=== PATIENT | female | born 1995 | race Caucasian/White ===

== ENCOUNTER → 2025-04-08 | Emergency (ER) | payer MEDICAID ==
[~2025-04-08] VITALS: Ht 157.5 cm; Wt 103.5 kg
[~2025-04-08] MED LIST: HYDR-3965 PO; IBUP-1984 PO; LIDO-52 TD; TIZA4TAB11 PO
[2025-04-08 14:28] VITALS: TEMP 97.4
--- NOTE | 2025-04-08 14:40 | Physician Documentation ---
History of Present Illness ~ Chief Complaint: Neck pain Stated Complaint: NECK PAIN Time Seen by MD: 15:57 HPI This is a 29-year-old female who presents with left-sided neck pain radiating into her head and left shoulder. Patient reports subjective fever. No reported trauma. No prior history of the same. No recent travels hospitalizations or known ill contacts. Medication Reconciliation Allergies: Coded Allergies: No Known Allergies (Unverified , 04/08/25) Scheduled Ibuprofen* (Motrin*), 800 MG PO Q8H Lidocaine (Lidoderm), 1 PATCH TD DAILY Tizanidine Hcl (Zanaflex), 1 TAB PO Q8H Review of Systems All Other Systems at this time: Reviewed and Negative ROS As stated above in the HPI, otherwise all systems are reviewed and negative. Physical Exam Vital Signs: RN Vital Signs have been reviewed: Yes, Temperature: 97.4, Heart Rate: 95, Respiratory Rate: 14, BP: 189/112, Pulse Oximetry: 100, Weight: 103.500 Physical Exam VITALS: Reviewed and as above. GENERAL: Alert, nontoxic appearing, no apparent distress. HEENT: RESPIRATORY: No increased work of breathing, no respiratory distress, speaking in full clear sentences CHEST: CV: BACK: GI: MUSCULOSKELETAL: SKIN: NEURO: PSYCH: General Appearance: alert, WD/WN, mild distress Neck: limited range of motion, muscle spasm, painful range of motion, paraspinous muscle tender (Left); No: thyromegaly, spinous processes tender, tenderness, meningeal signs EENT: normal ENT inspection Respiratory: no respiratory distress Chest: no accessory muscle use Cardiovascular: regular rate, rhythm Extremities: normal inspection Skin: normal color Neurologic: oriented x4 Psychiatric: normal mood/affect Progress Results/Orders Results/Orders Vital Signs 04/08/25 14:28 Temp 97.4 Pulse 95 Resp 14 B/P (MAP) 189/112 Pulse Ox 100 Medical Decision Making Additional information obtaine: N/A Findings MSE performed in triage and patient returned to ED lobby by nursing staff to await available ED room. Examination history consistent with trigger point pain that is atraumatic. No clinical suspicion for meningitis. Patient will likely benefit from NSAID therapy, antispasmodic and topical Lidoderm patches. Understands to return if symptoms worsening for consideration of procedural care such as trigger point injections. Patient's safely discharged in the emergency department. Differential Dx:Considerations: Include: Cervical muscle spasm, Discitis, DJD, Meningitis, Thyroiditis, Torticollis, Vertebral artery dissect., Other Departure Disposition: HOME / SELF CARE / HOMELESS Impression: Primary Impression: Trigger point of neck Condition: Stable Discharge Instructions: Cervical Sprain Additional Instructions: Please begin medications as directed for suspected trigger point pain. Follow up in 48-72 hours if symptoms worsen. I provided you a work note for three days. Have a wonderful new year. Departure Forms: Excuse form Work or School Excuse beginning now through the following date: Apr 11, 2025 Referrals: NO PRIMARY CARE PROVIDER (PCP) Prescriptions Lidocaine (Lidoderm) 5 % Adh..patch 1 PATCH TD DAILY, #10 PATCH Apply 1 patch daily for 12 hours then off for 12 hours May sub 15 grams 4 pct lidocaine cream if patches are cost peohibitive Prov: SADIE CHRISTIANSON [facility] 04/08/25 Tizanidine Hcl (ZANAFLEX) 4 Mg Tablet 1 TAB PO Q8H for 10 Days, #30 TAB 0 Refills Prov: SADIE CHRISTIANSON 04/08/25 Ibuprofen* (Motrin*) 400 Mg Tablet 800 MG PO Q8H for 10 Days, #30 TAB Prov: SADIE CHRISTIANSON PAC 04/08/25 Education Educated: Patient Educated regarding: diagnosis, treatment, prognosis, need for follow up Signature Scribe Signature: . Attestation: . RORY ENG [facility] Apr 08, 2025 14:40 SADIE CHRISTIANSON Apr 08, 2025 16:27
[2025-04-08 17:25] VITALS: BP 169/107; PULSE 67; RESP 18; O2SAT 97
== END | disposition home or self-care (01) ==
LOC: ER 14:14
DX: M54.2 Cervicalgia (principal); R50.9 Fever, unspecified; Z79.899 Other long term (current) drug therapy
CPT/HCPCS: 99283